=== PATIENT | female | born 1975 | race African-American/Black ===

== ENCOUNTER 2020-03-29 09:36 | Emergency (ER) | payer OTHER, SELFPAY ==
--- NOTE | 2020-03-29 10:20 | RAD REPORT ---
EXAM DESCRIPTION: [place] Single View03/29/2020 10:05 am CLINICAL HISTORY: Chest pain COMPARISON: 2016 FINDINGS: The lungs appear clear of acute infiltrate. The heart is normal size IMPRESSION: No acute abnormalities displayed
[2020-03-29 10:21] LABS: Basophils % 1.1 % (0-1.3); Hematocrit 40.1 % (36.0-45.0); Lymphocytes % 33.2 % (15.3-44.8); MPV 7.3 fL (7.6-11.3); RBC Red Blood Cell Count 4.36 M/uL (3.86-4.86)
[2020-03-29 10:34] LABS: Protime INR 0.93
[2020-03-29 10:58] LABS: ALT/SGPT 15 U/L (12-78); AST/SGOT 10 U/L (15-37); Albumin 3.1 g/dL (3.4-5.0); Alkaline Phosphatase 73 U/L (45-117); BUN Blood Urea Nitrogen 8 mg/dL (7-18); Bicarbonate 26 mmol/L (21-32); Bilirubin Direct < 0.1 mg/dL (0-0.2); Bilirubin Total 0.3 mg/dL (0.2-1.0); Glucose Level 112 mg/dL (74-106); Magnesium 1.8 mg/dL (1.8-2.4); NT PRO-BNP 20 pg/mL (<125); Potassium 4.4 mmol/L (3.5-5.1); Protein, Total 6.5 g/dL (6.4-8.2); Sodium Level 139 mmol/L (136-145); Troponin (Emerg Dept Use Only) < 0.02 ng/mL (0.0-0.045)
--- NOTE | 2020-03-29 11:30 | ER ---
Nurse's Notes [facility] Name: Vernell Davalos Age: 44 yrs Sex: Female : 1975 Arrival Date: 03/29/2020 Time: 09:39 Bed 14 Private MD: Diagnosis: Mid back pain Presentation: 03/29 09:40 Chief complaint: left mid back pain that radiates to left lateral chest x 2 days. hb Coronavirus screen: At this time, the client does not indicate any symptoms associated with coronavirus-19. Ebola Screen: No symptoms or risks identified at this time. Initial Sepsis Screen: Does the patient meet any 2 criteria? No. Patient's initial sepsis screen is negative. Does the patient have a suspected source of infection? No. Patient's initial sepsis screen is negative. Risk Assessment: Do you want to hurt yourself or someone else? Patient reports no desire to harm self or others. Onset of symptoms was March 27, 2020. 09:40 Method Of Arrival: EMS: [facility] 09:40 Acuity: RITA 3 hb Triage Assessment: 09:43 General: Appears in no apparent distress. Behavior is calm, cooperative. Pain: Pain hb currently is 9 out of 10 on a pain scale. EENT: No signs and/or symptoms were reported regarding the EENT system. Neuro: Level of Consciousness is awake, alert, obeys commands, Oriented to person, place, time, situation. Cardiovascular: Capillary refill < 3 seconds Patient's skin is warm and dry. Respiratory: Respiratory effort is even, unlabored, Respiratory pattern is regular, symmetrical. GI: No signs and/or symptoms were reported involving the gastrointestinal system. : No signs and/or symptoms were reported regarding the genitourinary system. Derm: Skin is pink, warm \T\ dry. Musculoskeletal: Reports left mid back pain that radiates to left lateral chest. 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 - Social history:: Smoking status: Patient reports the use of cigarette tobacco products, smokes one pack cigarettes per day. Screenin:43 Abuse screen: Denies threats or abuse. Denies injuries from another. Nutritional hb screening: No deficits noted. Tuberculosis screening: No symptoms or risk factors identified. Fall Risk None identified. Assessment: 09:45 General: see triage. hb 10:45 Reassessment: Patient appears in no apparent distress at this time. Patient and/or hb family updated on plan of care and expected duration. Pain level reassessed. Patient is alert, oriented x 3, equal unlabored respirations, skin warm/dry/pink. 11:26 Reassessment: Patient appears in no apparent distress at this time. Patient and/or hb family updated on plan of care and expected duration. Pain level reassessed. Patient is alert, oriented x 3, equal unlabored respirations, skin warm/dry/pink. Vital Signs: 09:40 BP 124 / 100; Pulse 88; Resp 16; Temp 98.2(TE); Pulse Ox 98% on R/A; Weight 72.57 kg; hb Height 5 ft. 4 in. (162.56 cm); Pain 9/10; 10:48 BP 153 / 81; Pulse 67; Resp 16; Pulse Ox 100% on R/A; hb 11:26 BP 143 / 87; Pulse 63; Resp 15; Pulse Ox 99% on R/A; hb 09:40 Body Mass Index 27.46 (72.57 kg, 162.56 cm) hb ED Course: 09:39 Patient arrived in ED. hb 09:41 Triage completed. hb 09:42 Arm band placed on. hb 09:43 Patient has correct armband on for positive identification. Placed in gown. Bed in low hb position. Call light in reach. property assessment monitor on. Pulse ox on. NIBP on. 09:43 Patient maintains SpO2 saturation greater than 95% on room air. hb 09:44 Meagan Redding FNP-C is PHCP. kb 09:44 Maurice Steiner MD is Attending Physician. kb 09:47 Brook Jacobs, DELILAH is Primary Nurse. hb 10:06 XRAY Chest (1 view) In Process Unspecified. EDMS 10:14 Inserted saline lock: 20 gauge in left antecubital area, using aseptic technique. Blood hb collected. 11:30 No provider procedures requiring assistance completed. ca1 11:39 intact, bleeding controlled, No redness/swelling at site. Pressure dressing applied. ca1 Administered Medications: No medications were administered Outcome: 11:29 Discharge ordered by MD. chowdary 11:39 Discharged to home ambulatory. ca1 11:39 Condition: stable 11:39 Discharge instructions given to patient, Instructed on discharge instructions, follow up and referral plans. medication usage, Demonstrated understanding of instructions, follow-up care, medications, Prescriptions given X 1. 11:39 Patient left the ED. ca1 Signatures: Dispatcher [employer] EDMeagan Villaseñor, ADOLPH-Zahra FARFAN-Brook Escobar RN RN Kailey Koch RN RN ca1 Corrections: (The following items were deleted from the chart) 09:42 09:40 Chief complaint: Left flank pain x 2 days. hb hb
--- NOTE | 2020-03-29 11:30 | EDPHYS ---
Physician Documentation [facility] Name: Vernell Davalos Age: 44 yrs Sex: Female : 1975 Arrival Date: 03/29/2020 Time: 09:39 Bed 14 Private MD: ED Physician Maurice Steiner HPI: 03/29 11:26 This 44 yrs old Black Female presents to ER via EMS with complaints of Back Pain. kb 11:26 The patient presents with pain that is acute, with no known mechanism of injury. The kb pain does not radiate. The problem was sustained without known cause. Modifying factors: The patient symptoms are alleviated by nothing, the patient symptoms are aggravated by nothing. Severity of symptoms: At their worst the symptoms were moderate, in the emergency department the symptoms are unchanged. The patient has not experienced similar symptoms in the past. The patient has not recently seen a physician. 11:26 The symptoms are located in the left subscapular area. Onset: The symptoms/episode kb began/occurred 2 week(s) ago, and became persistent 2 days ago. Associated signs and symptoms: The patient has no apparent associated signs or symptoms. 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 - Social history:: Smoking status: Patient reports the use of cigarette tobacco products, smokes one pack cigarettes per day. ROS: 11:25 Constitutional: Negative for fever, chills, and weight loss, Neck: Negative for injury, kb pain, and swelling, Cardiovascular: Negative for chest pain, palpitations, and edema, Respiratory: Negative for shortness of breath, cough, wheezing, and pleuritic chest pain, Abdomen/GI: Negative for abdominal pain, nausea, vomiting, diarrhea, and constipation, : Negative for injury, bleeding, discharge, and swelling, MS/Extremity: Negative for injury and deformity, Skin: Negative for injury, rash, and discoloration, Neuro: Negative for headache, weakness, numbness, tingling, and seizure. 11:25 Back: Positive for pain at rest, pain with movement, of the left subscapular area. Exam: 10:05 Constitutional: This is a well developed, well nourished patient who is awake, alert, kb and in no acute distress. Head/Face: Normocephalic, atraumatic. Chest/axilla: Normal chest wall appearance and motion. Nontender with no deformity. No lesions are appreciated. Cardiovascular: Regular rate and rhythm with a normal S1 and S2. No gallops, murmurs, or rubs. Normal PMI, no JVD. No pulse deficits. Respiratory: Lungs have equal breath sounds bilaterally, clear to auscultation and percussion. No rales, rhonchi or wheezes noted. No increased work of breathing, no retractions or nasal flaring. Abdomen/GI: Soft, non-tender, with normal bowel sounds. No distension or tympany. No guarding or rebound. No evidence of tenderness throughout. Skin: Warm, dry with normal turgor. Normal color with no rashes, no lesions, and no evidence of cellulitis. MS/ Extremity: Pulses equal, no cyanosis. Neurovascular intact. Full, normal range of motion. Neuro: Awake and alert, GCS 15, oriented to person, place, time, and situation. Cranial nerves II-XII grossly intact. Motor strength 5/5 in all extremities. Sensory grossly intact. Cerebellar exam normal. Normal gait. 10:05 ECG was reviewed by the Attending Physician. Vital Signs: 09:40 BP 124 / 100; Pulse 88; Resp 16; Temp 98.2(TE); Pulse Ox 98% on R/A; Weight 72.57 kg; hb Height 5 ft. 4 in. (162.56 cm); Pain 9/10; 10:48 BP 153 / 81; Pulse 67; Resp 16; Pulse Ox 100% on R/A; hb 11:26 BP 143 / 87; Pulse 63; Resp 15; Pulse Ox 99% on R/A; hb 09:40 Body Mass Index 27.46 (72.57 kg, 162.56 cm) hb MDM: 09:44 Patient medically screened. kb 11:25 Data reviewed: vital signs, nurses notes. Data interpreted: Pulse oximetry: on room air kb is 100 %. Interpretation: normal. Counseling: I had a detailed discussion with the patient and/or guardian regarding: the historical points, exam findings, and any diagnostic results supporting the discharge/admit diagnosis, lab results, radiology results, the need for outpatient follow up, a family practitioner, to return to the emergency department if symptoms worsen or persist or if there are any questions or concerns that arise at home. 03/29 09:45 Order name: Basic Metabolic Panel; Complete Time: 11:05 kb 03/29 09:45 Order name: CBC with Diff; Complete Time: 10:29 kb 03/29 09:45 Order name: LFT's; Complete Time: 11:05 kb 03/29 09:45 Order name: Magnesium; Complete Time: 11:05 kb 03/29 09:45 Order name: NT PRO-BNP; Complete Time: 11:05 kb 03/29 09:45 Order name: PT-INR; Complete Time: 10:40 kb 03/29 09:45 Order name: Troponin (emerg Dept Use Only); Complete Time: 11:05 kb 03/29 09:45 Order name: XRAY Chest (1 view); Complete Time: 10:24 kb 03/29 09:45 Order name: EKG; Complete Time: 09:45 kb 03/29 09:45 Order name: Cardiac monitoring; Complete Time: 10:14 kb 03/29 09:45 Order name: EKG - Nurse/Tech; Complete Time: 10:05 kb 03/29 09:45 Order name: IV Saline Lock; Complete Time: 10:14 kb 03/29 09:45 Order name: Labs collected and sent; Complete Time: 10:14 kb 03/29 09:45 Order name: O2 Per Protocol; Complete Time: 10:14 kb 03/29 09:45 Order name: O2 Sat Monitoring; Complete Time: 10:14 kb EC:05 Rate is 73 beats/min. Rhythm is regular. QRS [place] is Normal. ID interval is normal at kb 160 msec. QRS interval is normal at 64 msec. QT interval is normal at 386 msec. Administered Medications: No medications were administered Disposition: 03/29/20 11:29 Discharged to Home. Impression: Mid back pain. - Condition is Stable. - Discharge Instructions: Back Pain, Adult, [id number]. - Prescriptions for Diclofenac Sodium 75 mg Oral Tablet, Delayed Release (E.C.) - take 1 tablet by ORAL route 2 times per day As needed; 30 tablet. - Medication Reconciliation Form, Thank You Letter, Antibiotic Education, Prescription Opioid Use form. - Work release form (03/29/20 11:45). em1 - Follow up: Emergency Department; When: As needed; Reason: Worsening of condition. Follow up: Private Physician; When: 2 - 3 days; Reason: Recheck today's complaints, Continuance of care, Re-evaluation by your physician. Addendum: 03/30/2020 14:36 Co-signature as Attending Physician, Maurice Steiner MD I agree with the assessment and k dr plan of care. Signatures: Dispatcher [employer] EDMS Meagan Redding, POWER PRESS TENDER-C POWER PRESS TENDER-Ckb Maurice Steiner MD MD [facility] Brook Jacobs RN RN Kailey Koch RN RN ca1 Jung Mendez em1 Corrections: (The following items were deleted from the chart) 03/29 11:39 11:29 03/29/2020 11:29 Discharged to Home. Impression: Mid back pain. Condition is ca1 Stable. Forms are Medication Reconciliation Form, Thank You Letter, Antibiotic Education, Prescription Opioid Use. Follow up: Emergency Department; When: As needed; Reason: Worsening of condition. Follow up: Private Physician; When: 2 - 3 days; Reason: Recheck today's complaints, Continuance of care, Re-evaluation by your physician. kb
[2020-03-29 11:52] VITALS: TEMP 98.2
[2020-03-29 12:07] VITALS: BP 143/87; O2SAT 99
== END 2020-03-29 11:39 | disposition home or self-care (01) ==
LOC: ER 09:36
DX: M54.9 Dorsalgia, unspecified (principal); F17.210 Nicotine dependence, cigarettes, uncomplicated
CPT/HCPCS: 36415; 71045; 80048; 80076; 83735; 83880; 84484; 85025; 85610; 93005; 99285

== ENCOUNTER 2025-03-22 22:02 | Emergency (ER) | payer OTHER, SELFPAY ==
--- OUTSIDE RECORDS SUMMARY | 2025-03-22 22:05 | XMS REPORT | Continuity of Care Document ---
Author Name Unknown Address [address] [facility] [address] [place] [address] Organization [facility] Address [address] [facility] [address] [place] [address] Care Team Providers Care Investment Counselor Name Role Phone PCP, PATIENT DOES NOT HAVE A Primary Care Physic lito Unavailable FACUNDO FERNANDEZ Attending Clinician Unavailable FACUNDO FERNANDEZ Attending Clinician Unavailable Campaigns, Generic Provider Attending Clinician Unavailable GIORGIO YU Attending Clinician Unavailable GIORGIO YU Attending Clinician Unavailable GIORGIO YU Admitting Clinician Unavailable Payers Payer Name Policy Type Policy Number Effective Date Expirati on Date Source [facility] [id number] 2024 00:00:00 Allergies, Adverse Reactions, Alerts Allergy Name Allergy Type Status Severity Reaction(s) Onset Date Inactive Date Treating Clinician Comments Source NO KNOWN ALLERGIE S Drug Class Active [facility] Social History Social Habit Start Date Stop Date Quantity Comments Source Sexual orientation [facility] ASSERTION Possible [facility] Sex assigned at 1975 00:00:00 1975 00:00:00 [facility] Smoking Status Start Date Stop Date Source Tobacco smoking consumption unknown [facility] Medications Ordered Medication Name Filled Medication Name Start Date Stop Date Current Medication? Ordering Clinician Indication Dosage Frequency Signature (SIG) Comments Components Source ketorolac (TORADOL) injection 15 mg 10-20 15:30: 00 10-20 15:05 :00 No 15mg 15 mg, Intramuscu lar, ONCE, 1 dose, On Henna 10/20/24 at 1030, Routine [facility] dexamethaso ne sod phos PF injection 10 mg 10-20 14:45: 00 10-20 15:06 :00 No 10mg 10 mg, Intramuscu lar, ONCE, 1 dose, On Henna 10/20/24 at 0945, 1 mL [facility] meloxicam 15 mg tablet 10-20 00:00: 00 10-31 04:59 :00 No [id number] 15mg Take 1 tablet by mouth in the morning for 10 days. [facility] traMADoL 50 mg tablet 10-20 00:00: 00 10-26 04:59 :00 No [id number] 50mg Take 1 tablet by mouth every 6 (six) hours as needed for Pain (scale 7-10) for up to 5 days. Indication s: acute pain [facility] Vital Signs Vital Name Observation Time Observation Value Comments S ource Systolic blood pressure 2025-03-22 19:41:00 106 mm[Hg] [facility] Diastolic blood pressure 2025-03-22 19:41:00 68 mm[Hg] [facility] Heart rate 2025-03-22 19:41:00 82 /min [facility] Body temperature 2025-03-22 19:41:00 36.89 Yvonne [facility] Respiratory rate 2025-03-22 19:41:00 16 /min [facility] Body height 2025-03-22 19:41:00 162.6 cm [facility] Body weight 2025-03-22 19:41:00 71.215 kg [facility] BMI 2025-03-22 19:41:00 26.95 kg/m2 [facility] Oxygen saturation in Arterial blood by Pulse oximetry 2025-03-22 19:41:00 100 /min [facility] Systolic blood pressure 2024-10-20 14:23:00 141 mm[Hg] [facility] Diastolic blood pressure 2024-10-20 14:23:00 95 mm[Hg] [facility] Heart rate 2024-10-20 14:23:00 84 /min [facility] Body temperature 2024-10-20 14:23:00 36.78 Yvonne [facility] Respiratory rate 2024-10-20 14:23:00 16 /min [facility] Body height 2024-10-20 14:23:00 162.6 cm [facility] Body weight 2024-10-20 14:23:00 63.594 kg [facility] BMI 2024-10-20 14:23:00 24.07 kg/m2 [facility] Oxygen saturation in Arterial blood by Pulse oximetry 2024-10-20 14:23:00 99 /min Joffre o [facility] Procedures Procedure Date / Time Performed Performing Clinicia n Source XR CERVICAL SPINE 2 VW 2024-10-20 14:56:59 Giorgio Yu [facility] Encounters Start Date/Time End Date/Time Encounter Type Admission Type Attending [facility] Care Facility Care Department Encounter ID Source 2025-03-22 14:42:00 2025-03-22 15:15:00 Emergency X FACUNDO FERNANDEZ [facility] ERT [id number] [facility] 2024-11-02 00:00:00 2024-11-02 10:08:00 Letter (Out) Campaigns, Generic Provider Campaigns, Generic Provider [facility] [id number] [facility] 2024-10-20 09:25:00 2024-10-20 11:43:00 Emergency X GIORGIO YU [facility] ERT [id number] [facility] 2024-02-08 16:23:35 2024-02-08 16:23:35 Outpatient [facility] [id number] Aron Solitario Jeff 2024-02-04 10:12:37 2024-02-04 10:12:37 Outpatient [facility] [id number] Aron F Jeff 2022-12-15 13:23:00 2022-12-15 13:23:00 Outpatient [facility] [id number] Aron F Jeff 2022-09-15 13:15:13 2022-09-15 13:15:13 Outpatient [facility] [id number] Aron Aguilar 2022-09-10 13:58:50 2022-09-10 13:58:50 Outpatient [facility] [id number] Aron Aguilar Results Test Description Test Time Test Comments Results Resul t Comments Source XR CERVICAL SPINE 2 VW 2024-10-06 5 15:32:47 XR CERVICAL SPINE 2 VW HISTORY: 49 years old, Female with cervical radiculopathy . TECHNIQUE: Frontal and lateral views of the cervical spine were obtained. COMPARISON: None. FINDINGS: The cervical spine can be visualized to level of C7 on the lateral view. There is slight reversal of the cervical lordosis centered at C5. Thevertebral bodies are normal in height and in normal alignment. No acutefracture or traumatic malalignment. The craniocervical junction isunremarkable. The odontoid view is unremarkable. Multilevel degenerative changes are noted in the form of disc spacenarrowing, anterior osteophytes and facet arthropathy, which are mostconspicuous at C4-C6. [facility] PAP TEST, THINPREP, IMAGED + HPV HIGH RISK + GC AND CHLAMYDIA AMPLIFIED 2024-02-10 19:11:19* Test Item Value Reference Range Interpretation Comme nts SOURCE: (test code = 8001) Unspecified SLIDES: (test code = 8011) 1 LMP: (test code = 8021) NOT GIVEN SPECIMEN ADEQUACY: (test code = 34794) (NOTE) Satisfactory for evaluation. INTERPRETATION: (test code = 00433) NILM/NO EPITH. ABNORMALITY;SEE BELOW -- ---- NEGATIVE FOR INTRAEPITHELIAL LESION OR MALIGNANCY (NILM) ------- LEAD ATHLETE : (test code = 8101) GERARD Campbell(ASCP) [facility] LOCATION: (test code = 91156) (NOTE) Specimens proces sed and interpreted at [facility], [address] [place] [address], , CLIA: [id number] CPT: (test code = 8140) 81505 UNLESS OTHERWISE INDICATED, COMPUTER AIDED AND LEAD ATHLETE SCREENING PERFORMED. The Pap test is a screening test with an inherent, but low probability of error. Your patient should be reminded to consult you immediately if she experiences any suspicious signs or symptoms, regardless of her Pap test result. An alternate report format containing images or consolidated prior Pap history is available as applicable. HPV HIGH RISK INTERP (test code = 05717) NEGATIVE NEGATIVE HPV 16 (test code = 99683) NEGATIVE HPV 18 (test code = 77631) NEGATIVE HPV, HR, OTHER GENOTYPES (test code = 55390) NEGATIVE Testing methodol ogy is real-time PCR utilizing hydrolysis probes with the Liza Delilah system. The test individually detects genotypes 16 and 18, as well as the other 12 high risk types (31,33,35,39,45,51,52, 56,58,59,66,68). The expected result is negative. A negative result does not rule out the presence of HPV not included in the genotype set, a low level of infection or specimen sampling error. GONORRHEA, NAAT, THINPREP (test code = 34370) NEGATIVE NEGATIVE A negative resul t does not exclude low level infection, specimensampling error, or collection error. Testing is performed with the Liza Delilah 6800/8800 systems usingreal-time Polymerase Chain Reaction (PCR) method. CHLAMYDIA, NAAT, THINPREP (test code = 93572) NEGATIVE NEGATIVE A negative resul t does not exclude low level infection, specimensampling error, or collection error. Testing is performed with the Liza Delilah 6800/8800 systems usingreal-time Polymerase Chain Reaction (PCR) method. UNLESS OTHERWISE INDICATED, ALL TESTING PERFORMED AT [facility] [address] [place] [address] REPAIR TECH: VIVEK VEGA M.D. CLIA NUMBER [id number] [facility] [place]. [id number] HEPATITIS PANEL, [id number] 04:41:40* Test Item Value Reference Range Interpretation Comme nts HEPATITIS A TOTAL AB (test code = 2725) NON-REACTIVE NON-REACTIVE HEPATITIS B SURF AG (test code = 2739) NON-REACTIVE NON-REACTIVE HEP B CORE TOTAL AB (test code = 2729) NON-REACTIVE NON-REACTIVE HEPATITIS B SURFACE AB (test code = 2737) NON-REACTIVE NON-REACTIVE HEPATITIS C ANTIBODY (test code = 4675) NON-REACTIVE NON-REACTIVE INTERPRETATION HEPATITIS A: (test code = 2552) (NOTE) Hepatitis A sero logy shows no evidence of past exposure to orcurrent infection with hepatitis A virus; patient not immune tohepatitis A. INTERPRETATION HEPATITIS B: (test code = 90536) (NOTE) Hepatitis B sero logy shows no evidence of past exposure to orcurrent infection with hepatitis B virus. No evidence of hepatitis Bimmunization is identified. INTERPRETATION HEPATITIS C: (test code = 86149) (NOTE) Hepatitis C sero logy shows no evidence of exposure to hepatitisC virus at this time. It can take up to 12 months after exposure tothe hepatitis C virus for antibodies to become detectable in the blood in certain patients. HIV 1/2 4TH GEN, RFLX [id number] 04:41:40* Test Item Value Reference Range Interpretation Comme nts HIV 1/2 4TH GEN, RFLX CONF ( test code = 3514) NON-REACTIVE NON-REACTIVE RPR REFLEX TO T. PALLIDUM - [id number] 04:25:47* Test Item Value Reference Range Interpretation Comme nts RPR (test code = 68644) NON-REACTIVE NON-REACTIVE RPR TITER (test code = 3500) NOT INDIC. TITER NOT INDIC. COMPREHENSIVE METABOLIC [id number] 06:24:02* Test Item Value Reference Range Interpretation Comme nts GLUCOSE (test code = 2217) 102 MG/DL 70-99 H BUN (test code = 2208) 11 MG/DL 6-20 CREATININE (test code = 2214) 0.93 MG/DL 0.60-1.30 eGFR (2020 CKD-EPI) (test co de = 55477) 76 ML/MIN/1.73 >60 CALC BUN/CREAT (test code = 2235) 12 RATIO 6-28 SODIUM (test code = 2230) 141 MEQ/L 133-146 POTASSIUM (test code = 2227) 4.5 MEQ/L 3.5-5.4 CHLORIDE (test code = 2214) 104 MEQ/L 95-107 CARBON DIOXIDE (test code = 2205) 25 MEQ/L 19-31 CALCIUM (test code = 2208) 9.3 MG/DL 8.5-10.5 PROTEIN, TOTAL (test code = 2228) 7.0 G/DL 6.1-8.3 ALBUMIN (test code = 2200) 4.4 G/DL 3.5-5.2 CALC GLOBULIN (test code = 2239) 2.6 G/DL 1.9-3.7 CALC A/G RATIO (test code = 2233) 1.7 RATIO 1.0-2.6 BILIRUBIN, TOTAL (test code = 2206) 0.4 MG/DL <=1.2 ALKALINE PHOSPHATASE (test code = 2203) 80 U/L 40-123 AST (test code = 2217) 18 U/L 9-40 ALT (test code = 2218) 17 U/L 5-40 LIPID [id number] 06:24:02* Test Item Value Reference Range Interpretation Comme nts CHOLESTEROL (test code = 2209) 150 MG/DL <200 TRIGLYCERIDES (test code = 2) 73 MG/DL <150 HDL CHOLESTEROL (test code = 2219) 32 MG/DL >39 L CALC LDL CHOL (test code = 2236) 102 MG/DL <100 H NOTE: CALCULATED LDL IS BASED ON GIULIANA-JACOBSEN METHOD WHICHINCLUDES ADJUSTABLE TRIGLYCERIDE:VLDL CHOLESTEROL RATIO.THIS FACTOR VARIES BY MEASURED TRIGLYCERIDE AND NON-HDLCHOLESTEROL CONCENTRATIONS WITH INCREASED CALCULATED LDL SEENIN HIGHER TRIGLYCERIDE OR LOWER NON-HDL SPECIMENS. FOR MOREINFORMATION, SEE CLIENT ANNOUNCEMENT AT [email or web address] RISK RATIO LDL/HDL (test code = 223) 3.19 RATIO <3.22 HEMOGLOBIN [id number] 02:54:23* Test Item Value Reference Range Interpretation Comme nts HEMOGLOBIN A1c (test code = 53581) 6.5 % 4.2-5.6 H [employer] GUIDELINES FOR HGB A1C: PREDIABETES/INCREASED RISK . . . . . . . 5.7-6.4% DIAGNOSIS OF DIABETES . . . . . . . . . >=6.5% WITH CONFIRMATION OR APPROPRIATE SYMPTOMS NOTE: ASSAY MAY BE AFFECTED BY HEMOGLOBINOPATHIES (SICKLE CELL ANEMIA, S-C DISEASE, OTHERS) OR ARTIFICIALLY LOWERED BY DECREASED RED CELL SURVIVAL (HEMOLYTIC ANEMIAS, BLOOD LOSS, ETC.). CONSIDER ALTERNATE TESTING OR LABORATORY CONSULTATION. UNLESS OTHERWISE INDICATED, ALL TESTING PERFORMED AT [facility] [address] [place] [id number] REPAIR TECH: VIVEK VEGA M.D. [place] NUMBER [id number] [facility] [place]. [id number] CBC W/AUTO DIFF WITH [id number] 02:46:03* Test Item Value Reference Range Interpretation Comme nts WBC (test code = 1001) 6.4 K/UL 3.5-11.0 RBC (test code = 1002) 4.80 M/UL 3.80-5.40 HEMOGLOBIN (test code = 1003) 14.7 G/DL 11.5-15.5 HEMATOCRIT (test code = 1004) 45.6 % 34.0-45.0 H MCV (test code = 1005) 95.0 fL 80.0-99.0 MCH (test code = 1006) 30.6 PG 25.0-33.0 MCHC (test code = 1007) 32.2 G/DL 31.0-36.0 RDW (test code = 1038) 12.2 % 11.5-15.0 NEUTROPHILS (test code = 1008) 54.8 % LYMPHOCYTES (test code = 1010) 36.7 % MONOCYTES (test code = 1011) 6.3 % EOSINOPHILS (test code = 1012) 1.4 % BASOPHILS (test code = 1013) 0.5 % IMMATURE GRANULOCYTES (test code = 1036) 0.3 % NUCLEATED RBCS (test code = 1065) 0.0 /100 WBC'S See_Comment [Automated [employer] ge] The system which generated this result transmitted reference range: 0.0. The reference range was not used to interpret this result as normal/abnormal. PLATELET COUNT (test code = 1015) 336 K/UL 130-400 ABSOLUTE NEUTROPHILS (test code = 1066) 3.50 K/UL 1.50-7.50 ABSOLUTE LYMPHOCYTES (test code = 1067) 2.34 K/UL 1.00-4.00 ABSOLUTE MONOCYTES (test code = 1068) 0.40 K/UL 0.20-1.00 ABSOLUTE EOSINOPHILS (test code = 1040) 0.09 K/UL 0.00-0.50 ABSOLUTE BASOPHILS (test code = 1069) 0.03 K/UL 0.00-0.20 ABS IMMATURE GRANULOCYTES (test code = 1020) 0.02 K/UL 0.00-0.10 ABS NUCLEATED RBCS (test code = 15964) 0.00 K/UL 0.00-0.11 HIV 1/2 4TH GEN, RFLX [id number] 08:49:31* Test Item Value Reference Range Interpretation Comme nts HIV 1/2 4TH GEN, RFLX CONF (test code = 3514) NON-REACTIVE NON-REACTIVE UNLESS OTHERWISE INDICATED, ALL TESTING PERFORMED AT [facility] [address] [place] [address] REPAIR TECH: VIVEK VEGA M.D. IA NUMBER [id number] [facility] [place]. [id number] Notes Date/Time Note Provider Source 2025-03-22 14:40:21 Patient amb to triage for c/o tooth infection began yesterday Shannon Dugan RN [facility] 2024-10-20 11:43:28 Pt discharged with diagnosis of neck pain. Printed and verbal instructions reviewed with and given to pt. Prescriptions given x 2. Pt verbalized understanding of teaching, medication, and recommended follow-up. Denies questions or concerns at this time. Pt ambulatory at discharge. Appears in no apparent distress. No ataxia noted. Noelle Aggarwal RN [facility] 2024-10-20 09:22:19 Pt arrived ambulatory with complaints of neck tightness and pain since Thursday. Pt reports not being able to turn her head d/t tightness. No meds [employer] Bernice Varma RN [facility]
[2025-03-22] MEDS ORDERED: IBUPROFEN 400 MG TAB ONE (22:43)
[2025-03-22] MEDS ORDERED: AMOX/K CLAV 875 MG TAB ONE (22:43)
[2025-03-22] MEDS ORDERED: CODEINE 30MG/APAP 300MG TAB ONE (22:44)
--- NOTE | 2025-03-22 23:03 | EDPHYS ---
Physician Documentation [facility] Name: Vernell Davalos Age: 49 yrs Sex: Female : 1975 Arrival Date: 03/22/2025 Time: 22:02 Bed 9 Private MD: ED Physician Silas Barbosa HPI: 03/22 22:50 This 49 yrs old Black Female presents to ER via Ambulatory with complaints of cp Toothache, Facial Swelling. 22:50 The patient presents with pain. cp 22:50 The problem is located in the left lower teeth. Onset: The symptoms/episode cp began/occurred yesterday. Duration: The symptoms are continuous, and are steadily getting worse. [employer] PH[employer]GRAPH: 22:11 LMP N/A - Irregular menses, Not vc1 Historical: - Allergies: 22:09 No Known Allergies; vc1 - Home Meds: 22:09 amlodipine 10 mg tablet [Active]; metformin 1,000 mg Oral tablet 2 times per day vc1 [Active]; - PMHx: 22:09 Hypertensive disorder; Diabetes mellitus; vc1 - PSHx: 22:09 None; vc1 - Immunization history:: Client reports receiving the 2nd dose of the Covid vaccine, Flu vaccine is not up to date. Patient has never been vaccinated. - Infectious Disease History:: Denies. - Social history:: Smoking status: Patient reports the use of cigarette tobacco products, smokes one pack cigarettes per day. Reported history of juuling and/or vaping. ROS: 22:55 Constitutional: Negative for body aches, chills, fever, poor PO intake, cp 22:55 Eyes: Negative for injury, pain, redness, and discharge, cp 22:55 ENT: Positive for dental pain, 22:55 Abdomen/GI: Negative for abdominal pain, vomiting, diarrhea, constipation, 22:55 Neuro: Negative for altered mental status, 22:55 All other systems are negative, Exam: 22:55 Head/Face: Normocephalic, atraumatic. cp 22:55 Constitutional: The patient appears in no acute distress, alert, awake, non-toxic, well developed, well nourished, 22:55 ENT: External ear(s): are unremarkable, Ear canal(s): are normal, clear, Nose: is normal, Dental exam: abscess, is not appreciated, dental caries, that is moderate, diffusely, pain, that is moderate, specifically in the lower left cuspid (#22), 22:55 Neck: ROM/movement: is normal, is supple, without pain, no range of motions limitations, Lymph nodes: no appreciated lymphadenopathy, 22:55 Chest/axilla: Inspection: normal, Vital Signs: 22:07 Weight 71.21 kg; Height 5 ft. 4 in. ; Pain 10/10; vc1 22:12 BP 130 / 91; Pulse 82; Resp 16; Temp 97.8; Pulse Ox 100% ; vc1 22:07 Body Mass Index 26.95 (71.21 kg, 162.56 cm) vc1 22:07 Pain Scale: Adult vc1 MDM: 22:17 Medical Screening Exam initiated cp Administered Medications: 22:47 Drug: Acetaminophen-Codeine PO (300 mg-30 mg) 2 tabs PO once; RASS on ADMIN: Combtv4, jb4 Very Agttd3, Agttd2, Rstlss1, AlertClm0, Drwsy-1, Lt Sdtn-2, Mod Sdtn-3, Dp Sdtn-4, UnArsble-5 Route: PO; 23:30 Follow up: Response: No adverse reaction; Marked relief of symptoms; Pain is decreased jb4 22:47 Drug: Ibuprofen PO 800 mg PO once Route: PO; jb4 23:30 Follow up: Response: No adverse reaction; Marked relief of symptoms; Pain is decreased jb4 22:48 Drug: Amoxicillin-Clavulanate PO 875 mg PO once Route: PO; jb4 23:30 Follow up: Response: No adverse reaction; Marked relief of symptoms; Pain is decreased jb4 Disposition Summary: 03/22/25 23:02 Discharge Ordered Notes: Location: Home cp Problem: new cp Symptoms: have improved cp Condition: Stable cp Diagnosis - Disorder of teeth and supporting structures, unspecified cp Followup: cp - With: Private Physician - When: 5 - 6 days - Reason: Recheck today's complaints Discharge Instructions: - Discharge Summary Sheet cp - Dental Pain cp Forms: - Medication Reconciliation Form cp - Antibiotic Education cp - Prescription Opioid Use cp - Patient Portal Instructions cp - Leadership Thank You Letter cp Prescriptions: - Amoxicillin 875 mg Oral Tablet - take 1 tablet ORAL route every 12 hours for 10 days; 20 tablet; Refills: 0, cp Product Selection Permitted - Anaprox DS 550 mg Oral Tablet - take 1 tablet ORAL route every 12 hours As needed; 20 tablet; Refills: 0, cp Product Selection Permitted Addendum: 03/24/2025 02:44 Co-signature as Attending Physician, Silas WATTS reviewed the patient's care t t7 provided by the Advanced Practice Provider and agree with the diagnosis and treatment plan. Signatures: Miguel Roman PA-C PA-C cp Bryson, James RN RN jb4 Fany Cortez RN RN vc1 Silas Barbosa DO DO tt7 Corrections: (The following items were deleted from the chart) 03/22 22:11 22:09 Home Meds: None; vc1 vc1
--- NOTE | 2025-03-22 23:03 | ER ---
Nurse's Notes [facility] Name: Vernell Davalos Age: 49 yrs Sex: Female : 1975 Arrival Date: 03/22/2025 Time: 22:02 Bed 9 Private MD: Diagnosis: Disorder of teeth and supporting structures, unspecified Presentation: 03/22 22:07 Chief complaint: Patient states: pain to bottom left gums, started yesterday. vc1 Coronavirus screen: Client denies travel out of the [place] in the last 14 days. At this time, the client does not indicate any symptoms associated with coronavirus-19. Ebola Screen: Patient negative for fever greater than or equal to 101.5 degrees Fahrenheit, and additional compatible Ebola Virus Disease symptoms Patient denies exposure to infectious person. Patient denies travel to an Ebola-affected area in the 21 days before illness onset. No symptoms or risks identified at this time. Initial Sepsis Screen: Does the patient meet any 2 criteria? No. Patient's initial sepsis screen is negative. Does the patient have a suspected source of infection? No. Patient's initial sepsis screen is negative. Risk Assessment: Do you want to hurt yourself or someone else? Patient reports no desire to harm self or others. Onset of symptoms was March 21, 2025. 22:07 Method Of Arrival: Ambulatory vc1 22:07 Acuity: RITA 4 vc1 22:08 Care prior to arrival: Medication(s) given: Motrin, 5 pills oragel. vc1 Triage Assessment: 22:11 General: Appears in no apparent distress. uncomfortable, Behavior is calm, cooperative, vc1 appropriate for age. Pain: Complains of pain in left lower gums Pain currently is 10 out of 10 on a pain scale. Quality of pain is described as throbbing. EENT: Reports pain in left lower gums. Neuro: Level of Consciousness is awake, alert, obeys commands, Oriented to person, place, time, situation, Appropriate for age. Cardiovascular: Capillary refill < 3 seconds Patient's skin is warm and dry. Respiratory: Airway is patent Respiratory effort is even, unlabored, Respiratory pattern is regular, symmetrical. GI: No deficits noted. No signs and/or symptoms were reported involving the gastrointestinal system. : No deficits noted. No signs and/or symptoms were reported regarding the genitourinary system. Derm: Skin is intact, is healthy with good turgor, Skin is dry, Skin is normal, Skin temperature is warm. Musculoskeletal: Circulation, motion, and sensation intact. Range of motion: intact in all extremities. MEDICARE COORDINATOR: 22:11 LMP N/A - Irregular menses, Not vc1 Historical: - Allergies: 22:09 No Known Allergies; vc1 - Home Meds: 22:09 amlodipine 10 mg tablet [Active]; metformin 1,000 mg Oral tablet 2 times per day vc1 [Active]; - PMHx: 22:09 Hypertensive disorder; Diabetes mellitus; vc1 - PSHx: 22:09 None; vc1 - Immunization history:: Client reports receiving the 2nd dose of the Covid vaccine, Flu vaccine is not up to date. Patient has never been vaccinated. - Infectious Disease History:: Denies. - Social history:: Smoking status: Patient reports the use of cigarette tobacco products, smokes one pack cigarettes per day. Reported history of juuling and/or vaping. Screenin:15 [facility] ED Fall Risk Assessment (Adult) History of falling in the last 3 months, vc1 including since admission No falls in past 3 months (0 pts) Confusion or Disorientation No (0 pts) Intoxicated or Sedated No (0 pts) Impaired Gait No (0 pts) Mobility Assist Device Used No (0 pt) Altered Elimination No (0 pt) Score/Fall Risk Level 0 - 2 = Low Risk Oriented to surroundings, Maintained a safe environment, Educated pt \T\ family on fall prevention, incl call for assistance when getting out of bed. Abuse screen: Denies threats or abuse. Nutritional screening: No deficits noted. Tuberculosis screening: No symptoms or risk factors identified. Assessment: 23:01 Reassessment: Patient appears in no apparent distress at this time. Patient and/or jb4 family updated on plan of care and expected duration. Pain level reassessed. Patient is alert, oriented x 3, equal unlabored respirations, skin warm/dry/pink. Vital Signs: 22:07 Weight 71.21 kg; Height 5 ft. 4 in. ; Pain 10/10; vc1 22:12 BP 130 / 91; Pulse 82; Resp 16; Temp 97.8; Pulse Ox 100% ; vc1 22:07 Body Mass Index 26.95 (71.21 kg, 162.56 cm) vc1 22:07 Pain Scale: Adult vc1 ED Course: 22:04 Patient arrived in ED. gm2 22:05 Miguel Roman PA-C is PHCP. cp 22:05 Silas Barbosa DO is Attending Physician. cp 22:08 Triage completed. vc1 22:11 Arm band placed on left wrist. vc1 23:00 León Gerardo, RN is Primary Nurse. jb4 23:33 No provider procedures requiring assistance completed. Patient did not have IV access cp4 during this emergency room visit. Administered Medications: 22:47 Drug: Acetaminophen-Codeine PO (300 mg-30 mg) 2 tabs PO once; RASS on ADMIN: Combtv4, jb4 Very Agttd3, Agttd2, Rstlss1, AlertClm0, Drwsy-1, Lt Sdtn-2, Mod Sdtn-3, Dp Sdtn-4, UnArsble-5 Route: PO; 23:30 Follow up: Response: No adverse reaction; Marked relief of symptoms; Pain is decreased jb4 22:47 Drug: Ibuprofen PO 800 mg PO once Route: PO; jb4 23:30 Follow up: Response: No adverse reaction; Marked relief of symptoms; Pain is decreased jb4 22:48 Drug: Amoxicillin-Clavulanate PO 875 mg PO once Route: PO; jb4 23:30 Follow up: Response: No adverse reaction; Marked relief of symptoms; Pain is decreased jb4 Medication: 23:33 VIS not applicable for this client. cp4 Outcome: 23:02 Discharge ordered by MD. cp 23:33 Discharged to home ambulatory, cp4 23:33 Condition: stable 23:33 Discharge instructions given to patient, Instructed on discharge instructions, follow up and referral plans. medication usage, Demonstrated understanding of instructions, follow-up care, medications, Prescriptions given X 2, 23:36 Patient left the ED. vc1 Signatures: Miguel Roman PA-C PA-C cp Bryson, James, DELILAH MAZARIEGOS jb4 Fany Cortez RN RN vc1 Yessi Aggarwal cp4 Mandy Epstein gm2 Corrections: (The following items were deleted from the chart) 22:11 22:09 Home Meds: None; vc1 vc1
[2025-03-23 00:55] VITALS: BP 130/91; TEMP 97.8; O2SAT 100
== END 2025-03-22 23:36 | disposition home or self-care (01) ==
LOC: ER 22:02
DX: K08.89 Other specified disorders of teeth and supporting structures (principal); F17.210 Nicotine dependence, cigarettes, uncomplicated
CPT/HCPCS: 99283